=== PATIENT | female | born 1945 | race Caucasian/White ===

== ENCOUNTER → 2022-11-09 12:42 | Outpatient (CLI) | payer MEDICARE, SELFPAY ==
--- NOTE | ~2022-11-09 | CT_ITS ---
EXAMINATION: CT sinus wo con DATE: 11/09/2022 12:59 INDICATION: Chronic sinusitis. Headache. TECHNIQUE: Computed tomography (CT) of the paranasal sinuses was performed without contrast. Iterativ e reconstruction technique was employed. Exam dose: 421.74 mGy-cm total exam DLP. COMPARISON: None FINDINGS: There is rightward deviation of the nasal septum. The nasal turbinates are moderately promi nent but relatively symmetric in size; there is mild intralamellar cell of the right middle nasal tur binate. The frontal sinuses, ethmoid air cells, maxillary and sphenoid sinuses are normally developed and aer ated. Bilateral Dante cells, which are normally aerated. The ostiomeatal units are patent. The mastoid air cells are normally developed and aerated. IMPRESSION: Rightward deviation of nasal septum Mild intralamellar cell of the right middle nasal turbinate Bilateral Dante cells Patent paranasal sinuses, ostiomeatal units and mastoid air cells Reviewed, dictated and finalized at [facility]. Reviewed, dictated and finalized at [facility].
== END ==
PROVIDERS: PCP Otolaryngology; Visit Provider Otolaryngology
DX: J32.9 Chronic sinusitis, unspecified (principal); J34.2 Deviated nasal septum
CPT/HCPCS: 70486